=== PATIENT | male | born 1950 | race African-American/Black ===

== ENCOUNTER 2019-02-27 08:55 | Inpatient (IN) | payer OTHER ==
[2019-02-27 09:30] VITALS: BMI 24.2
--- NOTE | 2019-02-27 10:55 | HP ---
COWS - Scale Resting Pulse: 1= [place] 81-100 Sweatin= Chills/Flushing Restless Observation: 1= Difficult to Sit Still Pupil Size: 2= Moderately Dilated Bone or Joint Aches: 2= Severe Diffuse Aches Runny Nose/ Eye Tearin= Runny Nose/Eyes GI Upset > 30mins: 2= Nausea/Diarrhea Tremor Observation: 1= Tremor [place], Not Seen Yawning Observation: 1= 1-2x During Session Anxiety or Irritability: 1=Feels Anxious/Irritable Goose Flesh Skin: 0=Smooth Skin COWS Score: 14 CIWA Score - Admission Criteria OASAS Guidelines: Admission for Medically Managed Detox: Requires at least one of the followin. CIWA greater than 12 2. Seizures within the past 24 hours 3. Delirium tremens within the past 24 hours 4. Hallucinations within the past 24 hours 5. Acute intervention needed for co occurring medical disorder 6. Acute intervention needed for co occurring psychiatric disorder 7. Severe withdrawal that cannot be handled at a lower level of care (continued vomiting, continued diarrhea, abnormal vital signs) requiring intravenous medication and/or fluids 8. Admission ROS [facility] - [facility] Chief Complaint: " I need help to stop the heroin." Allergies/Adverse Reactions: Allergies Allergy/AdvReac Type Severity Reaction Status Date / Time Penicillins Allergy Severe Swelling Verified 02/27/19 09:18 aspirin Allergy Mild Itching Verified 02/27/19 09:18 History of Present Illness: 68 year old black male with history of opioid dependence. He has never overdosed but has had history of being in methadone program many years ago. He admits that he was still using heroin even when he was on methadone. He is currently using 10 bags of heroin intransally daily, last used 8 hours ago. He has never had to use narcan but has many co-morbid disorders such as Anxiety disorder on valium 5 mg daily on a prn basis prescribed by his PMD. He denies being depressed or SI- and SP- PMH: HTN on medication No prior Psurg Hx R leg surgery in 1967 He used to smoke ciggarettes but stopped 5 years ago. He used to smoke 12ppd for 20 pack years. He denies marijuana and cocain use. Exam Limitations: No Limitations - Ebola screening Have you traveled outside of the country in the last 21 days: No Have you had contact with anyone from an Ebola affected area: No Have you been sick,other than usual withdrawal symptoms: No Do you have a fever: No - Review of Systems Constitutional: Diaphoresis EENT: reports: No Symptoms Reported Respiratory: reports: No Symptoms reported Cardiac: reports: No Symptoms Reported GI: reports: Abdominal cramping : reports: No Symptoms Reported Musculoskeletal: reports: Back Pain Integumentary: reports: No Symptoms Reported Neuro: reports: No Symptoms reported Endocrine: reports: No Symptoms Reported Hematology: reports: No Symptoms Reported Psychiatric: reports: Judgement Intact, Orientated x3, Anxious Other Systems: Reviewed and Negative Patient History - Patient Medical History Hx Asthma: No Hx Chronic Obstructive Pulmonary Disease (COPD): No Hx Cardiac Disorders: No Hx Hypertension: Yes (on meds.) Hx Seizures: No Hx Diabetes: No Hx Gastrointestinal Disorders: No Hx Genitourinary Disorders: No Hx Sexually Transmitted Disorders: No Hx Renal Disease (ESRD): No Hx Depression: No Hx Suicide Attempt: No Hx Schizophrenia: No - Patient Surgical History Past Surgical History: Yes Hx Orthopedic Surgery: Yes (R leg sx in 1967) Anesthesia Reaction: No - PPD History Previous Implant?: Yes Documented Results: Negative w/o proof Implanted On Prior R Admission?: No PPD to be Administered?: Yes - Smoking Cessation Smoking history: Former smoker Have you smoked in the past 12 months: No If you are a former smoker, when did you quit?: "years ago" Hx Chewing Tobacco Use: No Initiated information on smoking cessation: No - Substance & Tx. History Hx Alcohol Use: No Hx Substance Use: Yes Substance Use Type: Heroin - Substances abused Heroin Substance route: Inhalation Frequency: Daily Amount used: 1 bundle Age of first use: 19 Date of last use: 02/27/19 Admission Physical Exam BHS - Vital Signs Vital Signs: Vital Signs - 24 hr 02/27/19 09:16 Temperature 97.2 F L Pulse Rate 68 Respiratory 20 Rate Blood Pressure 120/78 - Physical General Appearance: Yes: No Apparent Distress, Moderate Distress HEENTM: Yes: EOMI, Hearing grossly Normal, Normal ENT Inspection, Normocephalic , LY, Pharynx Normal Respiratory: Yes: Chest Non-Tender, Lungs Clear, No Respiratory Distress, No Accessory Muscle Use Neck: Yes: No masses,lesions,Nodules, Supple, Trachea in good position Breast: Yes: Within Normal Limits, Axillae without masses Cardiology: Yes: Regular Rhythm, Regular Rate, S1, S2 Abdominal: Yes: Normal Bowel Sounds, Flat, Soft Genitourinary: Yes: Within Normal Limits Back: Yes: Normal Inspection Musculoskeletal: Yes: full range of Motion, Gait Steady, Pelvis Stable Extremities: Yes: Normal Capillary Refill, Normal Inspection, Normal Range of Motion, Non-Tender Neurological: Yes: lead technician II-XII NML intact, Fully Oriented, Alert, Motor Strength 5/5, Normal Mood/Affect, Depressed Affect Integumentary: Yes: Normal Color, Warm Lymphatic: Yes: Within Normal Limits - Diagnostic (1) Opioid dependence with withdrawal Current Visit: Yes Status: Acute (2) Hypertension Current Visit: Yes Status: Acute (3) Anxiety disorder Current Visit: Yes Status: Acute Cleared for Admission [facility] - Detox or Rehab [facility] Level of Care: Medically Managed Screened but not Admitted - Documentation of Visit Screened but not Admitted: No Breathalyzer - Breathalyzer Breathalyzer: 0 Vital Signs - Vital Signs Vital signs refused: No Urine Drug Screen - Test Device Lot number: [id number] Expiration date: 11/04/20 - Results Drug screen NEGATIVE: Yes Urine drug screen results: MOP-Opiates, OXY-Oxycodone, BZO-Benzodiazepines Inpatient Rehab Admission - Rehab Decision to Admit Inpatient rehab admission?: No
[2019-02-27] MEDS ORDERED: hydrOXYzine PAMOATE 25 MG CAPSULE (FP) PO PRN (10:58)
[2019-02-27] MEDS ORDERED: METHOCARBAMOL 500 MG TABLET PO PRN (10:58)
[2019-02-27] MEDS ORDERED: BISMUTH SUBSALICYLATE 524 MG/30 ML UD PO PRN (10:58)
[2019-02-27] MEDS ORDERED: MAG HYDROX/AL HYDROX/SIMETH 30 ML UNIT-DOSE CUP PO PRN (10:58)
[2019-02-27] MEDS ORDERED: MAGNESIUM CITRATE 300 ML BOTTLE PO PRN (10:58)
[2019-02-27] MEDS ORDERED: MENTHOL/PHENOL 1 EACH UD MM PRN (10:58)
[2019-02-27] MEDS ORDERED: MELATONIN 5 MG TABLETS PO PRN (10:58)
[2019-02-27] MEDS ORDERED: IBUPROFEN 400 MG TABLET (FP) PO PRN (10:58)
[2019-02-27] MEDS ORDERED: ACETAMINOPHEN 325 MG TABLET (FP) PO PRN ×2 (10:58)
[2019-02-27] MEDS ORDERED: MAGNESIUM HYDROX 2400MG/30ML ORAL SUSPENSION 30 ML CUP PO PRN (10:58)
[2019-02-27] MEDS ORDERED: diazePAM 5 MG TABLET PO ONE (11:45)
[2019-02-27] MEDS ORDERED: METHADONE HCL 10 MG TABLET (FOR DETOX USE ONLY) PO ONE (12:00)
[2019-02-27 12:41] LABS: HEMATOCRIT 35.9 % (35.4-49); HEMOGLOBIN 11.7 GM/dL (11.7-16.9); MCH 28.9 pg (25.7-33.7); MCHC 32.8 g/dl (32.0-35.9); MEAN CELL VOLUME 88.2 fl (80-96); MEAN PLT VOLUME 8.8 fl (7.5-11.1); PLATELET COUNT 330 K/MM3 (134-434); RBC 4.07 M/mm3 (4.00-5.60); RDW 13.2 % (11.9-15.9); WHITE BLOOD COUNT 7.4 K/mm3 (4.0-10.0)
[2019-02-27 12:52] LABS: ALBUMIN 3.9 g/dl (3.4-5.0); BILIRUBIN,TOTAL 0.3 mg/dL (0.2-1); BLOOD UREA NITROGEN 31.6 mg/dL (7-18); CALCIUM 9.7 mg/dL (8.5-10.1); CREATININE 1.7 mg/dL (0.55-1.3)
--- NOTE | 2019-02-27 13:24 | CONSULT ---
[facility] Psychiatric Consult - Data Date of interview: 02/27/19 Admission source: Self-referred Identifying data: Mr Michel is a 68 years old Black male, father of 11 children, unemployed, domiciled seeking detox treatment for opioid Substance Abuse History: Reports history of heroin use. Refer to addiction counslor's summary for further information Medical History: Reports that his first psychiatric contact was 7 years ago when he was referred by the director of his methadone program to [facility] ED because he was crying for no obvious reason. He said that after evaluation at the ED he was referred back to the program with recommendation to see a psychiarist and a therapist for the treatment of anxiety. Since then till a month ago, he has been seeing both a therapist and a psychiatrist and he is prescribed Valium 5 mg/day prn. Denies previous psychiatric hospitalization or suicidal attempt. At present, reports feeling mildly anxious and sleeping poorly Psychiatric History: Significant for hypertension and history of prthosurgery for fracture of right femur 54 years ago. Physical/Sexual Abuse/Trauma History: Denies history of emotional, physical or sexual abuse as well as DV relationship. No service Mental Status Exam - Mental Status Exam Alert and Oriented to: Time, Place, Person Cognitive Function: Fair Patient Appearance: Disheveled Mood: Anxious Affect: Appropriate Patient Behavior: Cooperative Speech Pattern: Clear Voice Loudness: Normal Thought Process: Intact, Goal Oriented Hallucinations: Denies Suicidal Ideation: Denies Homicidal Ideation: Denies Insight/Judgement: Poor Sleep: Poorly Appetite: Good Muscle strength/Tone: Normal Gait/Station: Normal Psychiatric Findings - Problem List ([place] 1, 2,3) (1) Anxiety disorder Current Visit: Yes Status: Chronic (2) Substance-induced anxiety disorder Current Visit: Yes Status: Acute (3) Substance-induced sleep disorder Current Visit: Yes Status: Acute (4) Opioid dependence with withdrawal Current Visit: Yes Status: Acute (5) Hypertension Current Visit: Yes Status: Chronic - Initial Treatment Plan Initial Treatment Plan: 1) Start Melatonin 10 mg po HS prn for insomnia and Vistaril 50 mg po Q 4hrs prn for anxiety. 2) Continue inpatient detoxification
[2019-02-27] MEDS ORDERED: hydrOXYzine PAMOATE 50 MG CAPSULE (FP) PO PRN (13:41)
[2019-02-27] MEDS: cloNIDine HCL 0.1 MG TABLET PO PRN (22:29)
[2019-02-27] MEDS: THIAMINE HCL 100 MG TABLET (FP) PO SCH (22:29)
[2019-02-27] MEDS: MELATONIN 5 MG TABLETS PO PRN (22:30)
[2019-02-28] MEDS ORDERED: METHADONE HCL 10 MG TABLET (FOR DETOX USE ONLY) ONE (09:36)
[2019-02-28] MEDS ORDERED: METHADONE HCL 5 MG TABLET (FOR DETOX USE ONLY) ONE (09:36)
[2019-02-28] MEDS ORDERED: METHADONE (DETOX) 20 MG, METHADONE (DETOX) 5 MG PO ONE (10:00)
[2019-02-28] MEDS: PRENATAL VITAMINS W/ FOLIC ACID TABLET (FP) PO SCH (10:33)
[2019-02-28] MEDS ORDERED: PROCHLORPERAZINE MALEATE 5 MG TABLET PO PRN (12:39)
[2019-02-28] MEDS: SENNOSIDES 8.6MG TABLET (FP) PO SCH ×2 (14:00→21:42)
[2019-02-28] MEDS: DOCUSATE SODIUM 100 MG CAPSULE (FP) PO SCH ×2 (14:00→21:42)
--- NOTE | 2019-02-28 16:14 | PN ---
BHS COWS - Scale Resting Pulse: 0= [place] 80 or Below Sweatin= No chills or Flushing Restless Observation: 1= Difficult to Sit Still Pupil Size: 0= Normal to Room Light Bone or Joint Aches: 0= None Runny Nose/ Eye Tearin= None GI Upset > 30mins: 2= Nausea/Diarrhea Tremor Observation of Outstretched Hands: 0= None Yawning Observation: 1= 1-2x During Session Anxiety or Irritability: 2=Irritable/Anxious Goose Flesh Skin: 3=Piloerection COWS Score: 9 BHS Progress Note (SOAP) Subjective: Stomach Cramping, Constipation, Nausea, Anxious. Objective: PATIENT A & O X 3, OBSERVED AMBULATING ON DETOX UNIT UNASSISTED. IN NO ACUTE DISTRESS. 02/28/19 16:11 Vital Signs Temperature 97.9 F 02/28/19 13:36 Pulse Rate 79 02/28/19 13:36 Respiratory Rate 18 02/28/19 13:36 Blood Pressure 123/75 02/28/19 13:36 O2 Sat by Pulse Oximetry (%) Laboratory Tests 02/27/19 02/27/19 02/27/19 09:45 09:45 09:45 WBC 7.4 RBC 4.07 Hgb 11.7 Hct 35.9 MCV 88.2 MCH 28.9 MCHC 32.8 RDW 13.2 Plt Count 330 MPV 8.8 Sodium 138 Potassium 4.0 Chloride 102 Carbon Dioxide 28 Anion Gap 8 BUN 31.6 H Creatinine 1.7 H Est GFR (CKD-EPI)AfAm 46.33 Est GFR (CKD-EPI)NonAf 39.97 Random Glucose 102 Calcium 9.7 Total Bilirubin 0.3 AST 29 ALT 25 Alkaline Phosphatase 59 Total Protein 8.0 Albumin 3.9 RPR Titer Nonreactive LABS NOTED. Assessment: 02/28/19 16:11 WITHDRAWAL SYMPTOMS. AZOTEMIA. 02/28/19 16:13 Plan: CONTINUE DETOX. D/C IBUPROFEN AND MAGNESIUM-CONTAINING MEDS. FOR ABNORMAL ADMISSION RENAL LAB VALUES. COLACE, SENNA PO FOR CONSTIPATION. PRN TIGAN PO FOR NAUSEA.
[2019-02-28] MEDS: THIAMINE HCL 100 MG TABLET (FP) PO SCH (21:30)
[2019-02-28] MEDS: MELATONIN 5 MG TABLETS PO PRN (21:30)
[2019-03-01] MEDS: DOCUSATE SODIUM 100 MG CAPSULE (FP) PO SCH ×3 (06:15→22:05)
[2019-03-01] MEDS: ONDANSETRON *ODT* 4 MG TABLET SL PRN (09:19)
[2019-03-01] MEDS: cloNIDine HCL 0.1 MG TABLET PO PRN (09:46)
[2019-03-01] MEDS ORDERED: METHADONE HCL 10 MG TABLET (FOR DETOX USE ONLY) PO ONE (10:00)
[2019-03-01] MEDS: SENNOSIDES 8.6MG TABLET (FP) PO SCH ×2 (10:28→22:06)
[2019-03-01] MEDS: PRENATAL VITAMINS W/ FOLIC ACID TABLET (FP) PO SCH (10:28)
[2019-03-01] MEDS: amLODIPine BESYLATE 5 MG TABLET (FP) PO SCH (11:03)
--- NOTE | 2019-03-01 11:30 | PN ---
BHS COWS - Scale Resting Pulse: 1= [place] 81-100 Sweatin= No chills or Flushing Restless Observation: 1= Difficult to Sit Still Pupil Size: 1= Pupils >than Normal Bone or Joint Aches: 1= Mild Discomfort Runny Nose/ Eye Tearin= Nasal Congestion GI Upset > 30mins: 1= Stomach Cramp Tremor Observation of Outstretched Hands: 1= Tremor [place], Not Seen Yawning Observation: 1= 1-2x During Session Anxiety or Irritability: 2=Irritable/Anxious Goose Flesh Skin: 0=Smooth Skin COWS Score: 10 S Progress Note (SOAP) Subjective: alert,irritable,anxious,interrupted sleep,pain in the body Objective: 03/01/19 11:27 Vital Signs Temperature 98.2 F 03/01/19 08:50 Pulse Rate 87 03/01/19 08:50 Respiratory Rate 18 03/01/19 08:50 Blood Pressure 96/72 03/01/19 11:02 O2 Sat by Pulse Oximetry (%) Assessment: 03/01/19 11:27 withdrawal symptom Plan: continue detox methadone regimen,encourage oral fluid,repeat bmp in am
[2019-03-01] MEDS: THIAMINE HCL 100 MG TABLET (FP) PO SCH (22:05)
[2019-03-01] MEDS: MELATONIN 5 MG TABLETS PO PRN (22:05)
[2019-03-02] MEDS: DOCUSATE SODIUM 100 MG CAPSULE (FP) PO SCH ×3 (06:40→22:35)
[2019-03-02] MEDS: ONDANSETRON *ODT* 4 MG TABLET SL PRN (08:43)
[2019-03-02] MEDS ORDERED: METHADONE HCL 10 MG TABLET (FOR DETOX USE ONLY) ONE (08:56)
[2019-03-02] MEDS ORDERED: METHADONE HCL 5 MG TABLET (FOR DETOX USE ONLY) ONE (08:57)
[2019-03-02] MEDS: amLODIPine BESYLATE 5 MG TABLET (FP) PO SCH (09:45)
[2019-03-02] MEDS: PRENATAL VITAMINS W/ FOLIC ACID TABLET (FP) PO SCH (09:45)
[2019-03-02] MEDS: SENNOSIDES 8.6MG TABLET (FP) PO SCH ×2 (09:48→22:35)
[2019-03-02 09:58] LABS: CALCIUM 9.3 mg/dL (8.5-10.1); CREATININE 1.4 mg/dL (0.55-1.3); POTASSIUM 4.4 mmol/L (3.5-5.1)
[2019-03-02] MEDS ORDERED: METHADONE (DETOX) 10 MG, METHADONE (DETOX) 5 MG PO ONE (10:00)
[2019-03-02] MEDS ORDERED: ATENOLOL 50 MG TABLET (FP) PO SCH (10:00)
--- NOTE | 2019-03-02 12:49 | PN ---
S CIWA - CIWA Score Nausea/Vomitin-Mild Nausea/No Vomiting Muscle Tremors: 1-None Visible, but Nice Anxiety: 2 Agitation: 2 Paroxysmal Sweats: No Perspiration Orientation: 0-Oriented Tacttile Disturbances: 0-None Auditory Disturbances: 0-None Visual Disturbances: 0-None Headache: 1-Very Mild CIWA-Ar Total Score: 7 S Progress Note (SOAP) Subjective: lert,irritable,interrupted sleep,nausea Objective: 03/02/19 12:48 Vital Signs Temperature 97.1 F L 03/02/19 12:28 Pulse Rate 61 03/02/19 12:28 Respiratory Rate 18 03/02/19 12:28 Blood Pressure 110/63 03/02/19 12:28 O2 Sat by Pulse Oximetry (%) 03/02/19 12:48 Laboratory Results - last 24 hr 03/02/19 08:00 Sodium 138 Potassium 4.4 Chloride 103 Carbon Dioxide 28 Anion Gap 7 L BUN 21.0 H Creatinine 1.4 H Est GFR (CKD-EPI)AfAm 58.58 Est GFR (CKD-EPI)NonAf 50.54 Random Glucose 92 Calcium 9.3 Assessment: 03/02/19 12:49 withdrawal symptom Plan: continue detox methadone regimen
[2019-03-02] MEDS: MELATONIN 5 MG TABLETS PO PRN (22:34)
[2019-03-02] MEDS: THIAMINE HCL 100 MG TABLET (FP) PO SCH (22:35)
[2019-03-03] MEDS: DOCUSATE SODIUM 100 MG CAPSULE (FP) PO SCH (06:22)
[2019-03-03 09:24] VITALS: BP 152/89; PULSE 78; TEMP 97.3
[2019-03-03] MEDS ORDERED: METHADONE HCL 10 MG TABLET (FOR DETOX USE ONLY) PO ONE (10:00)
--- NOTE | 2019-03-03 12:29 | PN ---
S Progress Note Note: pt was admitted in withdrawals. pt c/o of withdrawals s/s and aggressive symptomatic management attempted however, pt in spite of extensive motivational counseling regarding the risk of relapse, seizures, OD, and or loss pt chose to sign out AMA.
--- NOTE | 2019-03-03 12:32 | DS ---
[facility] Detox Discharge Summary Admission Date: 02/27/19 - History Present History: Opioid Dependence - Physical Exam Results Vital Signs: Vital Signs Temperature 97.3 F L 03/03/19 09:23 Pulse Rate 78 03/03/19 09:23 Respiratory Rate 18 03/03/19 09:23 Blood Pressure 152/89 03/03/19 09:23 O2 Sat by Pulse Oximetry (%) Pertinent Admission Physical Exam Findings: pt arrived in withdrawals Laboratory Tests 02/27/19 02/27/19 02/27/19 09:45 09:45 09:45 WBC 7.4 RBC 4.07 Hgb 11.7 Hct 35.9 MCV 88.2 MCH 28.9 MCHC 32.8 RDW 13.2 Plt Count 330 MPV 8.8 Sodium 138 Potassium 4.0 Chloride 102 Carbon Dioxide 28 Anion Gap 8 BUN 31.6 H Creatinine 1.7 H Est GFR (CKD-EPI)AfAm 46.33 Est GFR (CKD-EPI)NonAf 39.97 Random Glucose 102 Calcium 9.7 Total Bilirubin 0.3 AST 29 ALT 25 Alkaline Phosphatase 59 Total Protein 8.0 Albumin 3.9 RPR Titer Nonreactive 03/02/19 08:00 WBC RBC Hgb Hct MCV MCH MCHC RDW Plt Count MPV Sodium 138 Potassium 4.4 Chloride 103 Carbon Dioxide 28 Anion Gap 7 L BUN 21.0 H Creatinine 1.4 H Est GFR (CKD-EPI)AfAm 58.58 Est GFR (CKD-EPI)NonAf 50.54 Random Glucose 92 Calcium 9.3 Total Bilirubin AST ALT Alkaline Phosphatase Total Protein Albumin RPR Titer pt refused to stay and complete his detox pt was told of risk of relapse however, pt chose to sign out AMA. - Treatment Patient has Accepted a Rehab Referral to: referral provided - Medication Discharge Medications: Ambulatory Orders Amlodipine Besylate [Norvasc -] 5 mg PO DAILY 02/27/19 Atenolol [Tenormin -] 50 mg PO DAILY 02/27/19 - Diagnosis (1) Opioid dependence with withdrawal Current Visit: Yes Status: Acute (2) Substance-induced anxiety disorder Current Visit: Yes Status: Acute (3) Substance-induced sleep disorder Current Visit: Yes Status: Acute (4) Anxiety disorder Current Visit: Yes Status: Chronic (5) Hypertension Current Visit: Yes Status: Chronic - AMA Did Patient Leave Against Medical Advice: Yes
[2019-03-04] MEDS ORDERED: METHADONE HCL 5 MG TABLET (FOR DETOX USE ONLY) PO ONE (06:00)
== END 2019-03-03 09:37 | disposition left against medical advice (07) | DRG 894 ==
LOC: YASAS 08:55 → Y6N 10:44
PROVIDERS: ADMIT Surgery; ATTEND Surgery
PROC: HZ2ZZZZ Detoxification Services for Substance Abuse Treatment (ICD-10-PCS; principal; 2019-02-27)
DX: F11.23 Opioid dependence with withdrawal (principal); F19.280 Other psychoactive substance dependence with psychoactive substance-induced anxiety disorder; F19.282 Other psychoactive substance dependence with psychoactive substance-induced sleep disorder; F41.9 Anxiety disorder, unspecified; I10 Essential (primary) hypertension; R79.89 Other specified abnormal findings of blood chemistry; Z88.0 Allergy status to penicillin; Z79.82 Long term (current) use of aspirin; Z87.891 Personal history of nicotine dependence
CPT/HCPCS: 36415; 80048; 80053; 85027; 86593; J0735; Q0162